=== PATIENT | female | born 1985 | race Caucasian/White ===

== ENCOUNTER 2019-10-19 15:32 | Inpatient (IN) | payer MEDICAID, SELFPAY ==
[~2019-10-19] VITALS: Ht 157.5 cm; Wt 74.4 kg
[2019-10-19] MEDS ORDERED: PREN-380 PO (16:09)
[2019-10-19 16:13] VITALS: BP 118/68
[2019-10-19] MEDS: BETAMETH ACET/BETAMETH NA PH 30 MG/5 ML VIAL IM SCH (16:31)
[2019-10-19] MEDS: LACTATED RINGERS 1,000 ML IV SCH (16:32)
[2019-10-19 16:59] LABS: BASOPHILS % (AUTO) 0.4 % (0.0-2.0); EOSINOPHILS % (AUTO) 0.5 % (0.0-4.0); HEMATOCRIT 37.3 % (36-48); HEMOGLOBIN 12.9 g/dL (12.0-16.0); LYMPHOCYTES # (AUTO) 1.8 K/uL (2.5-16.5); MEAN CORPUSCULAR HEMOGLOBIN 31 pg (27-31); MEAN CORPUSCULAR HGB CONC 35 g/dL (33-37); MEAN CORPUSCULAR VOLUME 90.7 fL (80-94); MONOCYTES # (AUTO) 0.7 K/uL (0.8-1.0); MONOCYTES % (AUTO) 7.7 % (1.7-9.3); NEUTROPHILS # (AUTO) 6.4 K/uL (1.8-7.7); NEUTROPHILS % (AUTO) 71.4 % (42.2-75.2); PLATELET COUNT (AUTO) 289 K/uL (140-450); RED BLOOD CELL COUNT(AUTO) 4.12 MIL/uL (4.20-5.40); RED CELL DISTRIBUTION WIDTH 14.2 % (11.6-13.7)
[2019-10-19 17:45] LABS: APPEARANCE,URINE HAZY (CLEAR); BILIRUBIN,URINE NEGATIVE (NEGATIVE); BLOOD, URINE NEGATIVE (NEGATIVE); COLOR,URINE YELLOW (YELLOW); LEUKOCYTE ESTERASE ,URINE TRACE (NEGATIVE); NITRITE, URINE NEGATIVE (NEGATIVE); UGLUCOSE NEGATIVE (NEGATIVE)
[2019-10-19 17:49] LABS: PROTHROMBIN TIME 9.3 secs (10.8-13.4)
[2019-10-19 17:57] LABS: RBC,URINE NONE SEEN /HPF (0-5); WBC,URINE 0-5 /HPF (0-5)
[2019-10-20] MEDS: LACTATED RINGERS 1,000 ML IV SCH ×3 (00:42→20:25)
--- NOTE | 2019-10-20 10:42 | NUR ---
PATIENT HAS BEEN SCREENED AND CATEGORIZED LOW NUTRITION RISK. PATIENT WILL BE SEEN WITHIN 7 DAYS OF ADMISSION. 10/26/[address]
[2019-10-20] MEDS: BETAMETH ACET/BETAMETH NA PH 30 MG/5 ML VIAL IM SCH (17:04)
[2019-10-21] MEDS: LACTATED RINGERS 1,000 ML IV SCH (05:31)
[2019-10-21] MEDS ORDERED: CITRIC ACID/SODIUM CITRATE 30 ML UDC PO SCH (12:15)
[2019-10-21] MEDS ORDERED: OXYTOCIN 20 UNITS in LACTATED RINGERS 1,000 ML IV SCH ×2 (14:28→15:03)
[2019-10-21] MEDS ORDERED: ONDANSETRON 4 MG/2 ML VIAL IVP PRN ×2 (14:30)
[2019-10-21] MEDS ORDERED: diphenhydrAMINE 50 MG/ML VIAL IVP PRN (14:30)
[2019-10-21] MEDS ORDERED: NALOXONE 0.4 MG/ML VIAL IVP PRN (14:30)
[2019-10-21] MEDS ORDERED: KETOROLAC 60 MG/2 ML VIAL IM PRN (14:30)
[2019-10-21] MEDS ORDERED: ePHEDrine 50 MG/ML VIAL ONE (14:55)
[2019-10-21] MEDS ORDERED: METHYLERGONOVINE 0.2 MG/ML AMP IM PRN (15:05)
[2019-10-21] MEDS ORDERED: TEMAZEPAM 15 MG CAP PO PRN (15:05)
[2019-10-21] MEDS ORDERED: IBUPROFEN 800 MG TAB PO PRN (15:05)
[2019-10-21] MEDS: DOCUSATE SOD/SENNA 50/8.6 MG 1 TAB PO SCH (21:00)
[2019-10-21] MEDS: KETOROLAC 30 MG/ML VIAL IVP PRN (21:11)
[2019-10-21] MEDS ORDERED: OXYTOCIN 20 UNITS/LR PREMIX 1,000 ML IV ONE (23:08)
[2019-10-22 05:58] LABS: BASOPHILS % (AUTO) 0.1 % (0.0-2.0); HEMATOCRIT 32.7 % (36-48); LYMPHOCYTES # (AUTO) 1.6 K/uL (2.5-16.5); MEAN CORPUSCULAR HEMOGLOBIN 31 pg (27-31); MEAN CORPUSCULAR HGB CONC 34 g/dL (33-37); MEAN CORPUSCULAR VOLUME 92.8 fL (80-94); MONOCYTES # (AUTO) 1.2 K/uL (0.8-1.0); MONOCYTES % (AUTO) 8.7 % (1.7-9.3); NEUTROPHILS # (AUTO) 11.4 K/uL (1.8-7.7); NEUTROPHILS % (AUTO) 80.2 % (42.2-75.2); PLATELET COUNT (AUTO) 239 K/uL (140-450); RED BLOOD CELL COUNT(AUTO) 3.53 MIL/uL (4.20-5.40); RED CELL DISTRIBUTION WIDTH 14.4 % (11.6-13.7); WHITE BLOOD COUNT (AUTO) 14.3 K/uL (4.8-10.8)
[2019-10-22] MEDS ORDERED: SODIUM PHOSPHATE 118 ML ENEM RC SCH (09:00)
[2019-10-22] MEDS: KETOROLAC 30 MG/ML VIAL IVP PRN (11:39)
[2019-10-22] MEDS: DOCUSATE SOD/SENNA 50/8.6 MG 1 TAB PO SCH (20:46)
[2019-10-22] MEDS: oxyCODONE/APAP 5/325 MG 1 TAB TAB PO PRN (22:12)
[2019-10-23] MEDS: oxyCODONE/APAP 5/325 MG 1 TAB TAB PO PRN ×3 (04:37→14:46)
== END 2019-10-23 17:25 | disposition home or self-care (01) | DRG 540 ==
LOC: INTOOBSV 15:32 → MFCC 15:32 → OBSVTOIN 15:32 → MFCC 20:02 → EDSTATUS 10-29 07:30
PROVIDERS: ADMIT Obstetrics & Gynecology; ATTEND Obstetrics & Gynecology
PROC: 0UB70ZZ Excision of Bilateral Fallopian Tubes, Open Approach (ICD-10-PCS; 2019-10-21)
PROC: 10D00Z1 Extraction of Products of Conception, Low, Open Approach (ICD-10-PCS; principal; 2019-10-21 15:00)
DX: O44.13 Complete placenta previa with hemorrhage, third trimester (principal); O24.429 Gestational diabetes mellitus in childbirth, unspecified control; O32.1XX0 Maternal care for breech presentation, not applicable or unspecified; Z3A.36 36 weeks gestation of pregnancy; Z37.0 Single live birth; Z30.2 Encounter for sterilization
CPT/HCPCS: 36415; 76805; 81001; 85025; 85384; 85610; 85730; 86592; 86886; 86900; 86901; 88302; 88307; J0690; J0702; J1885; J2405; J2590; J7060; J7120; Q0092; Q0163; U0003-CS